=== PATIENT | male | born 1995 | race Caucasian/White ===

== ENCOUNTER 2017-08-29 00:45 | Emergency (ER) | payer SELFPAY ==
[2017-08-29 01:10] LABS: BASOPHIL % 0.7 % (0.0-0.4); Eosinophil % 7.7 % (0.00-5.0); Granulocytes % 40.6 % (36.0-66.0); Lymphocytes % 40.5 % (24.0-44.0); Mean Cell Volume 90.9 fl (78-100); Mean Corpuscular Hemoglobin 31.1 pg (26-32); Mean Platelet Volume 10.6 fl (6-9.5); Monocytes % 10.5 % (0.0-12.0); Platelet Count 261 K/mm3 (150-450); Red Blood Count 4.86 M/mm3 (4.1-5.6); White Blood Count 6.1 K/mm3 (4.0-10.5)
[2017-08-29 01:32] LABS: ACETAMINOPHEN < 2.0 ug/ml (10-30); ALBUMIN 3.8 g/dL (3.4-5.0); ALKALINE PHOSPHATASE 93 U/L (46-116); ANION GAP 12.1 MEQ/L (5-15); BLOOD UREA NITROGEN 9 mg/dL (9-20); CHLORIDE 107 mEq/L (98-107); Carbon Dioxide 28.2 mEq/L (21-32); ETHYL ALCOHOL < 0.010 % (0.00-0.01); Glucose 86 MG/DL (70-110); Potassium 4.4 mEq/L (3.5-5.1); SGOT/AST 19 U/L (15-37); SGPT/ALT 26 U/L (12-78); SODIUM 143 mEq/L (136-145); Total Protein 6.8 gm/dL (6.4-8.2)
--- NOTE | 2017-08-29 01:32 | ERPHSYRPT ---
- History of Present Illness Time Seen by Provider: 08/29/17 01:20 Source: patient Exam Limitations: clinical condition Patient Subjective Stated Complaint: PT STATES HE WANTS TO KILL HIMSELF. STATES HE HAS FELT THIS WAY SINCE HE WAS 11 AND DID NOT FOLLOW THROUGH TONIGHT BECAUSE HE DID NOT WANT TO HURT HIS FATHER. SAYS HE CANNOT PAY HIS RENT AND WILL BE ON THE STREET SOON. STATES HE HAS BEEN TURNED DOWN BY EVERY LOCAL FACILTY FOR HELP. REPORTS HE WENT TO THE ER AT THE [facility] AND WAS ON SUICIDE WATCH BUT ULTIMATELY TURNED DOWN FOR PLACEMENT BECAUSE HE HAD NOT SERVED 24 MOS IN THE SERVICE. STATES HE PLANNED TO "BLOW MY BRAINS ALL OVER THE CEILING" WITH A 20GA SHOTGUN TONIGHT BECAUSE IT WOULD BE QUICK AND PAINLESS. Triage Nursing Assessment: PT IS AOX3, PUPILS PERRL, RESPS EASY AND NON LABORED , SKIN PINK WARM AND DRY. Physician History: PATIENT WITH A HISTORY OF DEPRESSION, OFF MEDICATIONS PROZAC AND ZYPREXA FOR 2 YEARS, COMPLAINS OF SUICIDAL IDEATIONS, POOR FINANCES, IS LOOSING HIS HOUSE, UNABLE TO KEEP FRIENDS OR FAMILY AROUND. HE CALLED POLICE TONIGHT STATING HE WANTS TO , POLICE FOUND PATIENT HOLDING SHOT GUN BETWEEN HIS LEGS. DENIES ALCOHOL OR STREET DRUG USE. [facility] REFUSED TO HELP HIM Timing/Duration: day(s) Severity of Symptoms-Max: severe Severity of Symptoms-Current: severe Context related to: other (FINANCES LOSSING HIS HOUSE) Suicidal thoughts: gesture, specific plan Associated Symptoms: depressed, suicidal ideation Previous symptoms: same symptoms as today Allergies/Adverse Reactions: No Known Drug Allergies Allergy (Verified 08/29/17 00:59) Hx Tetanus, Diphtheria Vaccination/Date Given: Yes Hx Influenza Vaccination/Date Given: No Hx Pneumococcal Vaccination/Date Given: No Immunizations Up to Date: Yes - Past Medical History Pertinent Past Medical History: Yes Psycho-Social History: Anxiety, Depression Other Medical History: CONCUSSION, BORDERLINE PERSONALITY DISORDER - Past Surgical History Past Surgical History: Yes Other Surgical History: ABSCESS - Social History Smoking Status: Current every day smoker How long have you smoked: 1 Exposure to second hand smoke: Yes Drug Use: none Patient Lives Alone: Yes - Review of Systems Constitutional: No Fever, No Chills Eyes: No Symptoms Ears, Nose, & Throat: No Symptoms Respiratory: No Cough, No Dyspnea Cardiac: No Chest Pain, No Edema, No Syncope Abdominal/Gastrointestinal: No Abdominal Pain, No Nausea, No Vomiting, No Diarrhea Genitourinary Symptoms: No Dysuria Musculoskeletal: No Back Pain, No Neck Pain Skin: No Rash Neurological: No Dizziness, No Focal Weakness, No Sensory Changes Psychological: Depression, Suicidal Ideations Endocrine: No Symptoms All Other Systems: Reviewed and Negative - Nursing Vital Signs Nursing Vital Signs: Initial Vital Signs Temperature 98.8 F 08/29/17 01:12 Pulse Rate 78 08/29/17 01:12 Respiratory Rate 18 08/29/17 01:12 Blood Pressure 140/89 08/29/17 01:12 O2 Sat by Pulse Oximetry 99 08/29/17 01:12 - Physical Exam General Appearance: no apparent distress Eyes, Ears, Nose, Throat Exam: normal ENT inspection, moist mucous membranes Neck Exam: normal inspection, non-tender, supple Respiratory Exam: normal breath sounds, lungs clear, No respiratory distress Cardiovascular Exam: regular rate/rhythm, No edema Gastrointestinal/Abdominal Exam: soft, No tenderness, No distention Extremities Exam: normal inspection, normal range of motion, No evidence of injury, No edema Peripheral Pulses: carotid (R): 2+, carotid (L): 2+, femoral (R): 2+, femoral (L ): 2+, dorsalis-pedis (R): 2+, dorsalis-pedis (L): 2+ Current Suicidality: denies suicide plan Neurological Exam: alert, 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, oriented x 3 Appearance: appropriate appearance Behavior/Eye Contact/Speech: alert & cooperative, good eye contact Thoughts/Hallucinations: normal thought pattern Skin Exam: normal color, warm, dry, No rash SpO2: 99 Oxygen Delivery: Room Air Ordered Tests: Active Orders 24 hr Category Date Time Status ACETAMINOPHEN Stat Lab 08/29/17 01:07 Completed CBC W DIFF Stat Lab 08/29/17 01:07 Completed CMP Stat Lab 08/29/17 01:07 Completed ETHYL ALCOHOL Stat Lab 08/29/17 01:07 Completed SALICYLATE Stat Lab 08/29/17 01:07 Completed Urine Triage Profile Stat Lab 08/29/17 01:34 Completed Lab/Rad Data: Laboratory Result Diagrams 08/29/17 01:07 08/29/17 01:07 Laboratory Results 08/29/17 08/29/17 08/29/17 Range/Units 01:34 01:07 01:07 WBC 6.1 (4.0-10.5) K/mm3 RBC 4.86 (4.1-5.6) M/mm3 Hgb 15.1 (12.5-18.0) gm/dl Hct 44.2 (42-50) % MCV 90.9 (78-100) fl MCH 31.1 (26-32) pg MCHC 34.2 (32-36) g/dl RDW 13.0 (11.5-14.0) % Plt Count 261 (150-450) K/mm3 MPV 10.6 H (6-9.5) fl Gran % 40.6 (36.0-66.0) % Lymphocytes % 40.5 (24.0-44.0) % Monocytes % 10.5 (0.0-12.0) % Eosinophils % 7.7 H (0.00-5.0) % Basophils % 0.7 (0.0-0.4) % Basophils # 0.04 (0-0.4) Sodium 143 (136-145) mEq/L Potassium 4.4 (3.5-5.1) mEq/L Chloride 107 (98-107) mEq/L Carbon Dioxide 28.2 (21-32) mEq/L Anion Gap 12.1 (5-15) MEQ/L BUN 9 (9-20) mg/dL Creatinine 0.90 (0.55-1.30) mg/dl Estimated GFR > 60 ML/MIN Glucose 86 (70-110) MG/DL Calcium 8.8 (8.5-10.1) mg/dL Total Bilirubin 0.10 L (0.2-1.0) mg/dL AST 19 (15-37) U/L ALT 26 (12-78) U/L Alkaline Phosphatase 93 (46-116) U/L Serum Total Protein 6.8 (6.4-8.2) gm/dL Albumin 3.8 (3.4-5.0) g/dL Salicylates 3.2 (2.8-20.0) mg/dl Urine Opiates Level NEG. (NEGATIVE) Ur Methadone NEG. (NEGATIVE) Acetaminophen < 2.0 L (10-30) ug/ml Urine Barbiturates NEG. (NEGATIVE) Ur Phencyclidine (PCP) NEG. (NEGATIVE) Urine Amphetamine NEG. (NEGATIVE) U Benzodiazepine Level NEG. (NEGATIVE) Urine Cocaine NEG. (NEGATIVE) Urine Marijuana (THC) NEG. (NEGATIVE) Ethyl Alcohol < 0.010 (0.00-0.01) % - Progress Progress Note: 08/29/17 02:26 PATIENT AGREES TO VOLUNTARY ADMISSION Discussed with : Other (DISCUSSED WITH DR TITUS AT 0210 ACCEPTS TRANSFER TO [facility]IA [facility]) - Departure Departure Disposition: Transfer Clinical Impression: MAJOR DEPRESSION, SUICIDAL IDEATION Condition: Stable Critical Care Time: No Referrals: NEMESIO SABA MD [ACTIVE STAFF] -
[2017-08-29 02:30] VITALS: BP 118/62; PULSE 80; O2SAT 98
== END 2017-08-29 03:06 | disposition short-term general hospital (02) ==
LOC: ED 00:45
DX: F32.9 Major depressive disorder, single episode, unspecified (principal); R45.851 Suicidal ideations
CPT/HCPCS: 36415; 80053; 80307; 85025; 90791; 99285; G0481; Q3014